=== PATIENT | male | born 1990 | race African-American/Black ===

== ENCOUNTER 2021-01-01 21:12 | Emergency (ER) | payer MEDICAID ==
[~2021-01-01] VITALS: Ht 167.6 cm; Wt 63.0 kg
[2021-01-01] MEDS ORDERED: ACETAMINOPHEN WITH CODEINE 300/30MG TABLET PO ONE (21:45)
[2021-01-01] MEDS ORDERED: ACETAMINOPHEN 325MG TABLET PO ONE (21:45)
[2021-01-01] MEDS ORDERED: IBUPROFEN 600MG TABLET PO ONE (21:45)
[2021-01-01] MEDS ORDERED: LIDOCAINE HCL/PF 1% 10 MG/ML 5ML VIAL IJ ONE (21:45)
[2021-01-01] MEDS ORDERED: BACITRACIN ZINC OINT UDPKT TOP ONE (21:45)
[2021-01-01] MEDS ORDERED: CEFAZOLIN 1000MG PREMIX 50 ML IV ONE (22:15)
[2021-01-01 23:00] VITALS: BP 120/81
== END 2021-01-01 23:15 | disposition left against medical advice (07) ==
LOC: ER 21:12 → EDBD 21:12 → ER 23:15
DX: S61.412A Laceration without foreign body of left hand, initial encounter (principal); Z88.8 Allergy status to other drugs, medicaments and biological substances; W26.0XXA Contact with knife, initial encounter; Y93.89 Activity, other specified; Y92.89 Other specified places as the place of occurrence of the external cause; Y99.8 Other external cause status
CPT/HCPCS: 12002; 73140; 99283; A4217; J3490; Z7610

== ENCOUNTER 2022-06-29 18:16 | Emergency (ER) | payer MEDICAID ==
[~2022-06-29] VITALS: Ht 172.7 cm; Wt 91.0 kg
[2022-06-29] MEDS ORDERED: IBUPROFEN 400MG TABLET PO ONE (19:45)
[2022-06-29 19:58] VITALS: BP 153/96
[2022-06-29] MEDS ORDERED: IBUP-2028 MT (21:48)
== END 2022-06-29 22:36 | disposition home or self-care (01) ==
LOC: ER 18:16
DX: S52.611A Displaced fracture of right ulna styloid process, initial encounter for closed fracture (principal); E11.9 Type 2 diabetes mellitus without complications; W01.0XXA Fall on same level from slipping, tripping and stumbling without subsequent striking against object, initial encounter; Y93.89 Activity, other specified; Y92.89 Other specified places as the place of occurrence of the external cause; Y99.9 Unspecified external cause status; Z98.890 Other specified postprocedural states
CPT/HCPCS: 29125; 73110; 99283

== ENCOUNTER 2024-08-08 22:09 | Emergency (ER) | payer MEDICAID ==
[~2024-08-08] VITALS: Ht 170.2 cm; Wt 90.0 kg
[~2024-08-08 22:09] MED LIST: IBUP-2028 MT; METF-416 MT
[2024-08-08] MEDS: DIPHENHYDRAMINE 50MG/ML VIAL IM STA (22:43)
[2024-08-08] MEDS: LORAZEPAM 2MG/ML INJ IM ONE (22:43)
[2024-08-08] MEDS: HALOPERIDOL LACTATE 5MG/ML VIAL IM STA (22:43)
[2024-08-08 23:55] VITALS: O2SAT 100
[2024-08-09 00:05] LABS: BASOPHILS % 0.6 % (0.0-2.0); EOSINOPHILS % 0.8 % (0.0-5.0); HEMOGLOBIN. 11.9 g/dL (14.0-18.0); LYMPHOCYTES % 30.9 % (20.0-50.0); MEAN CORPUSCULAR HEMOGLOBIN 27.6 pg (28.0-32.0); MEAN CORPUSCULAR HGB CONC 32.2 g/dL (31.0-37.0); MEAN CORPUSCULAR VOLUME 85.6 fL (80.0-94.0); MEAN PLATELET VOLUME 9.5 fl (7.4-10.4); MONOCYTES % 6.5 % (2.0-8.0); NEUTROPHILS % 61.2 % (40.0-76.0); PLATELET 204 x1000/uL (130-400); RED BLOOD CELL COUNT 4.32 mill/uL (4.7-6.1); RED CELL DISTRIBUTION WIDTH 14.7 % (11.6-14.6); WHITE BLOOD COUNT 8.1 x1000/uL (4.5-11.0)
[2024-08-09 00:19] LABS: CHLORIDE 109 mEq/L (98-107); POTASSIUM 2.9 mEq/L (3.5-5.1); SODIUM 145 mEq/L (136-145)
[2024-08-09 00:20] LABS: CALCIUM 9.6 mg/dL (8.7-10.4); CARBON DIOXIDE 28 mEq/L (21-32)
[2024-08-09 00:25] LABS: CREATININE 1.2 mg/dL (0.6-1.3); GLUCOSE 110 mg/dL (70-105); UREA NITROGEN BLOOD 11 mg/dL (9-23)
[2024-08-09 00:27] LABS: ACETAMINOPHEN < 2 ug/mL (10-30); CREATINE KINASE 828 IU/L (46-171)
[2024-08-09 00:28] LABS: ETHANOL BLOOD < 10 mg/dL (<10)
[2024-08-09] MEDS: KCL 20MEQ/100ML PREMIX 100 ML IV SCH (03:46)
[2024-08-09] MEDS: SODIUM CHLORIDE 0.9% 1,000 ML IV ONE (03:47)
[2024-08-09 10:36] VITALS: BP 121/81; PULSE 96; RESP 16; TEMP 37.00296; O2SAT 100
== END 2024-08-09 11:53 | disposition home or self-care (01) ==
LOC: ER 22:09
DX: F29 Unspecified psychosis not due to a substance or known physiological condition (principal); E87.6 Hypokalemia; E86.0 Dehydration; F17.200 Nicotine dependence, unspecified, uncomplicated; F12.10 Cannabis abuse, uncomplicated; F15.10 Other stimulant abuse, uncomplicated; Z00.00 Encounter for general adult medical examination without abnormal findings
CPT/HCPCS: 36415; 80048; 80307; 80320; 80329; 82550; 85025; 96365; 96366; 96372; 99285; 99291; J1200; J1630; J2060; J3480; G0480